=== PATIENT | male | born 1975 | race Caucasian/White ===

== ENCOUNTER 2018-03-30 10:11 | Emergency (ER) | payer BC ==
--- NOTE | 2018-03-30 10:15 | PDOC ---
Attending Attestation - Resident Resident Name: AnuelArnulfo [email or web address] - ED Attending Attestation I have performed the following: I have examined & evaluated the patient, The case was reviewed & discussed with the resident, I agree w/resident's findings & plan, Exceptions are as noted - HPI HPI: 43 yo M presents with abscess to L upper chest wall. He shaves his chest, uses the razors more than 3 times, and stores them in the shower. He has had similar symptoms in the past, rapidly became infected, positive for MRSA. No fever, chills. He is on immunotherapy for psoriasis with psoriatic arthritis. - Physicial Exam PE: GENERAL: Awake, alert, and fully oriented, in no acute distress HEAD: No signs of trauma EYES: PERRLA, EOMI, sclera anicteric, conjunctiva clear ENT: Auricles normal inspection, hearing grossly normal, nares patent, oropharynx clear without exudates. Moist mucosa NECK: Normal ROM, supple, no lymphadenopathy, JVD, or masses EXTREMITIES: Normal range of motion, no edema. No clubbing or cyanosis. No cords, erythema, or tenderness NEUROLOGICAL: Cranial nerves II through XII grossly intact. Normal speech, normal gait SKIN: Warm, Dry, normal turgor. +Small indurated lesion to L upper chest with fluctuance in the center. Approximately 3cm of induration. - Medical Decision Making Counseled patient to take abx, as he is on immunosuppressive meds. Also recommended that he replace razors frequently when shaving his chest, and do not store them in the moist shower environment.
[2018-03-30 10:19] VITALS: BP 123/83; PULSE 66; TEMP 98.9; BMI 25.1
[2018-03-30] MEDS ORDERED: CLINDAMYCIN HCL 300 MG CAPSULE PO ONE (10:44)
[2018-03-30] MEDS ORDERED: CEPHALEXIN MONOHYDRATE 500 MG CAPSULE (UD) PO ONE (10:45)
[2018-03-30] MEDS ORDERED: SULFAMETHOXAZOLE/TRIMETHOPRIM 800MG/160MG D.S. TABLET PO ONE (10:47)
--- NOTE | 2018-03-30 10:54 | PDOC ---
History of Present Illness - History of Present Illness Initial Comments: 03/30/18 15:15 43 year old who presents with L pectoral skin abscess that has been progressive for the past week. The patient reports that had a similar abscess under the R nipple several months ago that was found + MRSA. The patient denies any fever, any other sites of infection. He has no other complaints at bedside. PMHX: none PSHX: none Meds: none Allergies: none Tob: none Etoh: none Rec drugs: none <Toma Dos Santos - Last Filed: 04/06/18 11:49> <Sophie Amador - Last Filed: 04/06/18 15:16> - General Chief Complaint: Abscess Boil Stated Complaint: ABSCESS LEFT CHEST Time Seen by Provider: 03/30/18 10:13 Past History - Past Medical History COPD: No Other medical history: ARTHRITIS - Suicide/Smoking/Psychosocial Hx Smoking History: Never smoked Have you smoked in the past 12 months: No Information on smoking cessation initiated: No Hx Alcohol Use: No Drug/Substance Use Hx: No <Toma Dos Santos - Last Filed: 04/06/18 11:49> <Sophie Amador - Last Filed: 04/06/18 15:16> - Past Medical History Allergies/Adverse Reactions: Allergies Allergy/AdvReac Type Severity Reaction Status Date / Time No Known Allergies Allergy Verified 03/30/18 10:12 Home Medications: Ambulatory Orders Apremilast [Otezla] 30 mg PO DAILY 03/30/18 Cephalexin [Keflex] 500 mg PO QID #20 capsule 03/30/18 Sulfamethoxazole/Trimethoprim [Bactrim Ds Tablet] 1 each PO BID #14 tablet 03/30 Review of Systems - Review of Systems Able to Perform ROS?: Yes Is the patient limited Romansh proficient: No Constitutional: No: Chills, Diaphoresis, Fever Respiratory: No: Shortness of Breath Cardiac (ROS): No: Chest Pain Integumentary: Yes: Erythema, Lesions. No: Pruritus, Sweating <Toma Dos Santos - Last Filed: 04/06/18 11:49> *Physical Exam - Vital Signs Last Vital Signs Temp Pulse Resp BP Pulse Ox 98.9 F 66 18 123/83 100 03/30/18 10:11 03/30/18 10:11 03/30/18 10:11 03/30/18 10:11 03/30/18 10:11 - Physical Exam Comments: 04/06/18 11:50 GENERAL: Awake, alert, and fully oriented, in no acute distress HEAD: No signs of trauma, normocephalic, atraumatic EYES: EOMI, sclera anicteric, conjunctiva clear ENT: oropharynx clear without exudates. Moist mucosa NECK: Normal ROM LUNGS: No distress, speaks full sentences, clear to auscultation bilaterally HEART: Regular rate and rhythm, normal S1 and S2, no murmurs, rubs or gallops, peripheral pulses normal and equal bilaterally. ABDOMEN: Soft, nontender, normoactive bowel sounds. No guarding, no rebound. No masses EXTREMITIES : Normal inspection, Normal range of motion, no edema. No clubbing or cyanosis. NEUROLOGICAL: Normal speech, normal gait, no focal sensorimotor deficits SKIN: Warm, Dry, normal turgor, + L pectoral with 1cm diameter raised erythematous area, no warmth to touch <Toma Dos Santos - Last Filed: 04/06/18 11:49> - Vital Signs Last Vital Signs Temp Pulse Resp BP Pulse Ox 98.9 F 66 18 123/83 100 03/30/18 10:11 03/30/18 10:11 03/30/18 10:11 03/30/18 10:11 03/30/18 10:11 <Sophie Amador - Last Filed: 04/06/18 15:16> Procedures - Incision and Drainage I&D Site: Left: Torso Anesthesia: 1% Lidocaine Blade Size: 11 Attempts: 1 Complications: none Dressing: Yes <Sophie Amador - Last Filed: 04/06/18 15:16> ED Treatment Course - ADDITIONAL ORDERS Additional order review: 03/30/18 10:55 Gram Stain - Final Abscess Body Fluid Culture - Final Streptococcus Viridans Haemophilus Parainfluenzae Ii Staphylococcus Coagulase Neg Anaerobic Culture - Final NO ANAEROBES WERE ISOLATED - Medications Given in the ED: ED Medications Discontinued Medications Generic Name Dose Route Start Last Admin Trade Name Freq PRN Reason Stop Dose Admin Cephalexin HCl 500 mg 03/30/18 10:45 03/30/18 11:00 Keflex - PO 03/30/18 10:46 500 mg ONCE ONE Administration Clindamycin HCl 600 mg 03/30/18 10:44 03/30/18 11:09 Cleocin - PO 03/30/18 10:45 Not Given ONCE ONE Trimethoprim/Sulfamethoxazole 1 each 03/30/18 10:47 03/30/18 11:00 Bactrim Ds - PO 03/30/18 10:48 1 each ONCE ONE Administration <Sophie Amador - Last Filed: 04/06/18 15:16> Medical Decision Making - Medical Decision Making 03/30/18 15:28 43 year old who presents with L pectoral skin abscess that has been progressive for the past week. Incision and drainage performed at bedside with production of blood and purulence. We will send off wound culture and inform patient of the results. Patient stable and bedside, given wound care instructions and stric t return precautions. Advised to follow up with PCP within 1 week. <Toma Dos Santos - Last Filed: 04/06/18 11:49> *DC/Admit/Observation/Transfer - Discharge Dispostion Decision to Admit order: No <Toma Dos Santos - Last Filed: 04/06/18 11:49> <Sophie Amador - Last Filed: 04/06/18 15:16> Diagnosis at time of Disposition: Abscess - Discharge Dispostion Disposition: HOME Condition at time of disposition: Stable - Prescriptions Prescriptions: Cephalexin [Keflex] 500 mg PO QID #20 capsule Sulfamethoxazole/Trimethoprim [Bactrim Ds Tablet] 1 each PO BID #14 tablet - Patient Instructions Printed Discharge Instructions: DI for Incision and Drainage of a Skin Abscess Additional Instructions: You were seen in the ED for a skin abscess. You were treated with antibiotics and incisions drainage. You have a prescription for a short course of antibiotics written today. You are advised to f/u with you primary care physician and to return to the ED if you experience excess pain at the incision site, fevers or chest pain.
[2018-03-30] MEDS ORDERED: CEPHALEXIN MONOHYDRATE 500 MG CAPSULE (UD) ONE (10:58)
[2018-03-30] MEDS ORDERED: SULFAMETHOXAZOLE/TRIMETHOPRIM 800MG/160MG D.S. TABLET ONE (10:59)
== END 2018-03-30 11:05 | disposition home or self-care (01) ==
LOC: FER 10:11
PROC: 0H95XZZ Drainage of Chest Skin, External Approach (ICD-10-PCS; principal; 2018-03-30)
DX: L02.213 Cutaneous abscess of chest wall (principal); Z86.14 Personal history of Methicillin resistant Staphylococcus aureus infection
CPT/HCPCS: 87070; 87075; 87077; 87205; 99283-25